=== PATIENT | male | born 1965 | race Caucasian/White ===

== ENCOUNTER 2022-02-22 16:53 | Emergency (ER) | payer OTHER ==
[~2022-02-22] VITALS: Ht 172.7 cm; Wt 106.6 kg
[2022-02-22 17:11] VITALS: BP 127/79
--- NOTE | 2022-02-22 17:45 | NUR ---
OSCAR Collazo evaluating patient at bedside.
[2022-02-22 18:39] VITALS: BP 121/95
--- NOTE | 2022-02-22 18:39 | NUR ---
Patient discharged with v/s stable. Written and verbal after care instructions given. Patient verbalized understanding. Ambulatory with steady gait. All questions addressed prior to discharge. Advised to follow up with PMD.
--- NOTE | 2022-02-22 18:52 | NUR ---
The patient's care was reviewed and supervised by Yecenia Ferrera RN, RN.
== END 2022-02-22 18:39 | disposition home or self-care (01) ==
LOC: MED 16:53
DX: L98.9 Disorder of the skin and subcutaneous tissue, unspecified (principal); R03.0 Elevated blood-pressure reading, without diagnosis of hypertension
CPT/HCPCS: 99281